=== PATIENT | female | born 2000 | race Two or more races ===

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

== ENCOUNTER 2021-09-16 22:13 | Emergency (ER) | payer OTHER ==
[2021-09-17] MEDS ORDERED: CYCLOBENZAPRINE10 MG PO (01:22)
[2021-09-17] MEDS ORDERED: NORCO 5-325 TA1 EACH PO (01:22)
[2021-09-17] MEDS ORDERED: NAPROXEN500 MG PO (01:22)
[2021-09-17 01:32] LABS: BASOPHIL 0.1 % (0-2); EOSINOPHIL 1.1 % (0-5); HCT 37.3 % (37.0-47.0); HGB 12.6 g/dl (12.5-16.0); LYMPHOCYTE 40.8 % (15-48); MCH 32.1 pg (25.0-31.0); MCHC 33.8 g/dL (32.0-36.0); MCV 95.2 fL (78.0-100.0); MONOCYTE 8.1 % (0-12); MPV 9.2 fL (6.0-9.5); NEUTROPHIL 49.7 % (41-80); NRBC 0; PLT 291 K/uL (150-400); RBC 3.92 M/uL (4.20-5.40); RDW 13.4 % (11.5-14.0); WBC 8.4 K/uL (4.0-10.5)
[2021-09-17 01:56] LABS: ALBUMIN 3.8 g/dL (3.4-5.0); ALKALINE PHOSHATASE 59 U/L (46-116); ALT 17 U/L (14-59); AST 18 U/L (15-37); BILIRUBIN - TOTAL 0.5 mg/dL (0.2-1.0); BUN 13 mg/dL (7-18); BUN/CREAT RATIO (CALC) 17.6 RATIO; CHLORIDE 105 mmol/L (98-107); CO2 (BICARBONATE) 22 mmol/L (21-32); CPK 296 U/L (26-192); CREATININE 0.74 mg/dL (0.51-0.95); GLOBULIN (CALCULATION) 3.1 g/dL; GLUCOSE 86 mg/dL (74-106); POTASSIUM 2.8 mmol/L (3.5-5.1); TOTAL PROTEIN 6.9 g/dL (6.4-8.2)
[2021-09-17 01:57] LABS: C-REACTIVE PROTEIN < 0.20 mg/dL (<=0.90)
== END 2021-09-17 02:00 | disposition home or self-care (01) ==
LOC: FER 22:13
PROVIDERS: Internal Medicine
DX: M26.601 Right temporomandibular joint disorder, unspecified (principal); F17.200 Nicotine dependence, unspecified, uncomplicated; Z28.310 Unvaccinated for COVID-19
CPT/HCPCS: 36415; 80053; 82550; 85025; 86140; J1100; J1885; J2060